=== PATIENT | female | born 1980 | race Caucasian/White ===

== ENCOUNTER 2019-11-16 15:37 | Outpatient (CLI) | payer OTHER, SELFPAY ==
--- NOTE | ~2019-11-16 | US_ITS ---
EXAMINATION: US soft tissue groin RT EXAM DATE: 11/16/2019 16:22 INDICATION: Right groin pain. TECHNIQUE: Multiple grayscale and Doppler images of the right groin, inguinal region were obtained (veronica gray a technologist who performed the scan) and subsequently reviewed. There is no prior study for laura castillo. FINDINGS: No evidence of right inguinal hernia, lymphadenopathy or other abnormality on the exam. Femoral vesse ls are unremarkable. IMPRESSION: 1. Unremarkable ultrasound exam. Reviewed, dictated and finalized at location G.
== END 2019-11-16 15:38 | disposition home or self-care (01) ==
LOC: ANHIMG 15:40
PROVIDERS: PCP Physician Assistant; Visit Provider Surgery
DX: R10.31 Right lower quadrant pain (principal)
CPT/HCPCS: 76882

== ENCOUNTER 2021-03-31 13:54 | Emergency (ER) | payer OTHER, SELFPAY ==
[2021-03-31 14:21] VITALS: BP 137/91; PULSE 104; RESP 18; TEMP 37.2; O2SAT 98
--- NOTE | 2021-03-31 18:00 | ED.GENADULT ---
HPI - General Adult General Chief complaint: Unspecified Stated complaint: throat pain Time Seen by Provider: 03/31/21 15:23 Source: patient Mode of arrival: ambulatory Limitations: no limitations History of Present Illness HPI narrative: Patient 40-year-old female with chief complaint of sore throat for the past 2 days. Patient reports she has issues with recurrent tonsillitis. Patient reports she has been gargling with salt water and taking ibuprofen without relief of her symptoms. Patient also reports some low-grade fevers at home. Patient reports she was well to have her tonsils removed multiple years ago but did not go for with the procedure. Patient denies any other symptoms or concerns. Related Data Home Medications Medication Instructions Recorded Confirmed ibuprofen 800 mg tablet 800 mg PO TID 11/02/19 Allergies Allergy/AdvReac Type Severity Reaction Status Date / Time green pepper Allergy Severe Swelling Verified 11/02/19 11:56 of Lip/Tongue/Throat mushroom Allergy Severe Hives Verified 11/02/19 11:56 onion Allergy Severe Hives Verified 11/02/19 11:56 hydromorphone Allergy Unknown Confusion Unverified 01/18/15 09:12 codeine AdvReac Unknown Nausea Unverified 01/18/15 09:12 Review of Systems Review of Systems: CONSTITUTIONAL: Denies fever, chills, or sweats. EYES: Denies visual changes, redness, or discharge. ENT: Reports sore throat denies rhinorrhea, congestion, or otalgia. CARDIOVASCULAR: Denies chest pain, palpitations, or edema. RESPIRATORY: Denies cough or dyspnea. GASTROINTESTINAL: Denies abdominal pain, nausea, vomiting, or diarrhea. GENITOURINARY: Denies dysuria or hematuria. SKIN: Denies rash or itching. MUSCULOSKELETAL: Denies back pain, joint pain, or myalgia. NEUROLOGIC: Denies headache, numbness, dizziness, or weakness. PSYCHIATRIC: Denies anxiety or depression. [facility] Past Medical History Medical History (Updated 03/31/21 @ 18:05 by Eveline Hudson PA-C) Anxiety Surgical History Surgical History History of ankle surgery Hx laparoscopic cholecystectomy Hx of tubal ligation Family History Family History Mother Diabetes mellitus Hypertension Social History Social History Smoking status: Never smoker Alcohol intake: never Substance use: never Exam Narrative: GENERAL: Well-appearing, well-nourished, and in no acute distress. HEAD: Normocephalic, atraumatic. EYES: PERRLA and EOMI. ENT: Nares clear, no rhinorrhea or epistaxis. Mucous membranes moist. Bilateral tonsils erythematous with some erythema to the uvula as well. No uvular deviation. No exudate noted. Bilateral TMs pearly vargas nonbulging NECK: Supple. Bilateral tonsillar adenopathy. NEURO: No focal deficits. Alert and oriented x3. PSYCH: Normal mood and affect. Course Vital Signs Vital signs: Vital Signs Temperature 99.0 F 03/31/21 14:21 Pulse Rate 104 H 03/31/21 14:21 Respiratory Rate 18 03/31/21 14:21 Blood Pressure 137/91 H 03/31/21 14:21 Pulse Oximetry 98 03/31/21 14:21 Temperature 99.0 F 03/31/21 14:21 Pulse Rate 104 H 03/31/21 14:21 Respiratory Rate 18 03/31/21 14:21 Blood Pressure 137/91 H 03/31/21 14:21 Pulse Oximetry 98 03/31/21 14:21 Medical Decision Making MDM Narrative Medical decision making narrative: Patient has received Decadron injection and has decreased swelling to her throat. Patient speech is clear and appropriate she is able to handle her own secretions well. Patient strep test was negative. Will be sent for culture. Patient will be prescribed p Medrol Dosepak and Augmentin. She will also be given Magic mouthwash to help with pain and swelling. And naproxen. Patient will be referred to ear nose throat specialist for reevaluation. Patient instructed to return to emergency depart
[2021-03-31 18:25] VITALS: BP 138/82; PULSE 86; RESP 19; O2SAT 99
== END 2021-03-31 18:33 | disposition home or self-care (01) ==
PROVIDERS: Emergency Provider Emergency Medicine
DX: J03.91 Acute recurrent tonsillitis, unspecified (principal)
CPT/HCPCS: 87081; 87880; 96372; 99283; J1100

== ENCOUNTER 2023-07-16 21:14 | Emergency (ER) | payer OTHER, SELFPAY ==
[2023-07-16 21:16] VITALS: BP 140/84; PULSE 97; RESP 15; TEMP 36.8; O2SAT 98
[2023-07-16 21:50] LABS: Strep Group A RT-PCR NOT DETECTED (Negative)
[2023-07-16 22:01] LABS: Influenza A QL RT-PCR Negative (Negative); Influenza B QL RT-PCR Negative (Negative); RSV RNA, RT-PCR Negative (Negative); SARS-CoV-2 RNA PCR Negative (Negative)
[2023-07-16 22:02] VITALS: BP 152/89; PULSE 97; RESP 15; O2SAT 100
[2023-07-16 22:29] VITALS: BP 143/93; PULSE 97; RESP 15; TEMP 38.3; O2SAT 99
[2023-07-16] MEDS: KETOROLAC 15 MG/ML VIAL (*BKC) IV PUSH (22:31)
[2023-07-16] MEDS: ACETAMINOPHEN 325 MG TABLET 650 MG PO (22:31)
[2023-07-16] MEDS: ONDANSETRON INJ 4 MG/2 ML VIAL IV PUSH (22:31)
[2023-07-16] MEDS: dexAMETHasone SOD PHOS INJ 10 MG/ML 1 ML VIAL 6 MG IV PUSH (22:31)
--- NOTE | 2023-07-16 22:32 | ED.GENADULT ---
HPI - General Adult General Chief complaint: Unspecified Stated complaint: body aches, chills, throat hurts Time Seen by Provider: 07/16/23 21:35 Source: patient Mode of arrival: ambulatory Limitations: no limitations History of Present Illness HPI narrative: This is a 42-year-old female who presents to the ED with chief complaint of sore throat and chills beginning around 1930 this evening. Patient reports that her daughter was recently sick with sore throat and given amoxicillin. Patient reports that it feels like her tonsils are very swollen. Reports that she has had strep throat multiple times in the past and has had tonsil strain in the past. She saw ENT many years ago but said not to tonsillectomy. Patient states that she has had lot of generalized body aches, worse in the back. Denies shortness of breath, chest pain, abdominal pain, nausea, vomiting. Denies trismus, drooling or submandibular swelling. Related Data Home Medications Medication Instructions Recorded Confirmed ibuprofen 800 mg tablet 800 mg PO TID 11/02/19 Allergies Allergy/AdvReac Type Severity Reaction Status Date / Time man pepper [green pepper] Allergy Severe Swelling Verified 07/16/23 22:18 of Lip/Tongue/Throat mushroom Allergy Severe Hives Verified 07/16/23 22:18 onion Allergy Severe Hives Verified 07/16/23 22:18 hydromorphone Allergy Unknown Confusion Verified 07/16/23 22:18 codeine AdvReac Unknown Nausea Verified 07/16/23 22:18 Review of Systems Review of Systems: All systems as dictated in [facility] Past Medical History Medical History (Updated 07/16/23 @ 23:27 by Roel Mccormick PA-C) Anxiety Surgical History Surgical History History of ankle surgery Hx laparoscopic cholecystectomy Hx of tubal ligation Family History Family History Mother Diabetes mellitus Hypertension Social History Social History Smoking status: Never smoker Alcohol intake: never Substance use: never Living arrangements: with family Exam Narrative: GENERAL: Well-appearing, well-nourished, and in no acute distress. HEAD: Normocephalic, atraumatic. EYES: PERRLA and EOMI. ENT: 3+ tonsillar hypertrophy bilaterally. Uvula midline. Posterior oropharynx erythema present. No exudates. No muffled voice Floor of the mouth intact. No trismus. No drooling. Airway intact Nares clear, no rhinorrhea or epistaxis. Mucous membranes moist. NECK: Supple. No adenopathy or masses. CHEST: No respiratory distress. Clear to auscultation. No wheezes rales or rhonchi HEART: Regular rate and rhythm. No murmur heard. Normal peripheral pulses. ABDOMEN: Soft, nontender, nondistended, normal active bowel sounds. MSK: Normal range of motion. No edema. SKIN: Warm, dry, no rash. NEURO: Alert and oriented x3. No focal deficits. PSYCH: Normal mood and affect. Course Vital Signs Vital signs: Vital Signs Temperature 98.3 F 07/16/23 21:16 Pulse Rate 97 07/16/23 21:16 Respiratory Rate 15 07/16/23 21:16 Blood Pressure 140/84 07/16/23 21:16 Pulse Oximetry 98 07/16/23 21:16 Oxygen Delivery Room Air 07/16/23 21:16 Temperature 101 F H 07/16/23 22:29 Pulse Rate 97 07/16/23 22:29 Respiratory Rate 15 07/16/23 22:29 Blood Pressure 143/93 H 07/16/23 22:29 Pulse Oximetry 99 07/16/23 22:29 Oxygen Delivery Room Air 07/16/23 22:02 Medical Decision Making [facility] Narrative Medical decision making narrative: This is a 42-year-old female who presents to the ED with chief complaint of sore throat and chills. Vitals are initially but after RA evaluate the patient she does have noted temperature of 101? F. Otherwise no tachycardia or signs of sepsis. Exam remarkable for erythematous, small tonsils. No evidence of HAIRPIECE STYLIST on exam. Strep swab, swabs neg
[2023-07-16 23:15] VITALS: RESP 16
[2023-07-16] MEDS: AMPICILLIN SULB 1.5 GM/NS 50ML 1.5 GM/50 ML VIAL IVPB (23:38)
--- NOTE | 2023-07-26 02:04 | PC.NURSE ---
LATE ENTRY This note is being entered to document information to the patient's record. The following information was omitted on 07/17/23, by Alicia Song. The IV Ampicillin was infused on 07/17/23 0020.
== END 2023-07-17 00:06 | disposition home or self-care (01) ==
PROVIDERS: Emergency Medicine; Emergency Provider Physician Assistant
DX: J03.90 Acute tonsillitis, unspecified (principal); Z20.822 Contact with and (suspected) exposure to COVID-19; Z90.49 Acquired absence of other specified parts of digestive tract
CPT/HCPCS: 87637; 87651; 96365; 96375; 99284; A9270; J0295; J1100; J1885; J2405

== ENCOUNTER 2024-01-18 08:43 | Emergency (ER) | payer OTHER, SELFPAY ==
--- NOTE | ~2024-01-18 | CT_ITS ---
CT soft tissue neck w con Ordering provider: Rabia Liriano APRN History: 43 years Female with . L posterior neck abscess . Comparison: None. Technique: CT soft tissues neck was performed with contrast. . Automated exposure control and iterat jose reconstruction technique were employed. The dose-length product was 519.69 mGy-cm. 75 mL Omnipaqu e 350 was given IV. Findings: LOWER HEAD: The visualized brain parenchyma, optic globes/orbits and mastoids are normal. The visua lized paranasal sinuses are well aerated. SALIVARY GLANDS: Normal. THYROID: Normal. SUPRAHYOID DEEP SPACES: Enlarged left parapharyngeal lymph nodes is seen measuring 1.3 x 1.3 cm. CAROTID ARTERIES: Normal. JUGULAR VEINS: Normal. TONSILS: Slightly enlarged. ORAL CAVITY: normal as visualized. PHARYNX, LARYNX AND TRACHEA: Patent and normal. No prevertebral soft tissue swelling. SUPERFICIAL SOFT TISSUES: Soft tissue density is seen in the left posterior subcutaneous tissue which measures 1.3 x 1 cm and may represent a small abscess. Enlarged lymph nodes are seen in the left pos terior triangle with the largest node measures 1.3 cm. Small lymph nodes are seen in both posterior triangles. THORACIC INLET/VISUALIZED UPPER CHEST: Normal. SKELETAL: Normal. IMPRESSION: 1. Soft tissue density seen in the left posterior scalp suggestive of a small abscess. Fat strandin g is seen in the same area. 2. Lymph nodes enlargement seen in the left posterior triangle and left parapharyngeal spaces. Reviewed, dictated and finalized at location A. IMPRESSION: 1. Soft tissue density seen in the left posterior scalp suggestive of a small abscess. Fat stranding is seen in the same area. 2. Lymph nodes enlargement seen in the left posterior triangle and left paraph aryngeal spaces.
[2024-01-18 08:52] VITALS: BP 109/87; PULSE 81; RESP 14; O2SAT 100
--- NOTE | 2024-01-18 09:23 | ED.SKABFB ---
HPI - Skin/Abscess/Foreign Bdy General Chief complaint: Skin/Abscess/Foreign Body Stated complaint: swelling to left neck Time Seen by Provider: 01/18/24 09:01 History of Present Illness HPI narrative: Patient is a 43-year-old female who presents to the ER with of the left posterior neck abscess started 6 days ago. She went to urgent care 3 days ago where they started her on Bactrim. Patient reports the wound has not improved. She reports swelling has started traveling towards her L ear, down her left neck toward her shoulder. Patient endorses increased pain in the last 2 days. She reports it was draining 3 days ago but has since subsided and now has a black scab at the hogshead wrecker. Patient denies fevers, other signs /symptoms of illness, shortness of breath, or chest pain. She denies any medical history pertinent to this visit. Related Data Home Medications Medication Instructions Recorded Confirmed ibuprofen 800 mg tablet 800 mg PO TID 11/02/19 Allergies Allergy/AdvReac Type Severity Reaction Status Date / Time man pepper [green pepper] Allergy Severe Swelling Verified 01/18/24 09:12 of Lip/Tongue/Throat mushroom Allergy Severe Hives Verified 01/18/24 09:12 onion Allergy Severe Hives Verified 01/18/24 09:12 hydromorphone Allergy Unknown Confusion Verified 01/18/24 09:12 codeine AdvReac Unknown Nausea Verified 01/18/24 09:12 Review of Systems Review of Systems: All systems reviewed & are unremarkable except as noted in HPI and below PMFSH Past Medical History Medical History (Updated 01/18/24 @ 13:32 by Rabia Liriano APRN) Anxiety Neck abscess Surgical History Surgical History History of ankle surgery Hx laparoscopic cholecystectomy Hx of tubal ligation Family History Family History Mother Diabetes mellitus Hypertension Social History Social History Smoking status: Never smoker Alcohol intake: never Substance use: never Living arrangements: with family Exam Narrative: GENERAL: Well appearing, well-nourished, non-toxic, in no acute distress. HEAD: Normocephalic, atraumatic. NECK: Supple. 1 in by 1 in circular palpable lesion on posterior left neck, 1/4 inch black eschar at the tip of the lesion with no noticeable drainage. Redness and swelling travel approximately 1 additional inch down her neck towards her back. Site does not feel warm to the touch. Increased tenderness with palpation. Three palpable cervical lymph nodes tracking along the left side of patient's neck. RESPIRATORY: Airway patent, respirations nonlabored. Clear to auscultation bilaterally, no rales, rhonchi, wheezing. CARDIOVASCULAR: Regular rate and rhythm without murmurs, rubs, or gallops. Peripheral pulses 2+ and equal bilaterally. ABDOMINAL: Soft, nontender, nondistended, no hepatosplenomegaly. Normoactive BS. MUSCULOSKELETAL: Moves all extremities. Strength/ROM intact without gross deformities. SKIN: Warm, dry, normal color except for wound on L neck. NEURO: A&O X3. Speech clear. Cranial nerves II-XII grossly intact. Steady gait. No ataxic movements. PSYCHIATRIC: Appropriate mood and affect. Normal interaction. Course Vital Signs Vital signs: Vital Signs Pulse Rate 81 01/18/24 08:52 Respiratory Rate 14 01/18/24 08:52 Blood Pressure 109/87 01/18/24 08:52 Pulse Oximetry 100 01/18/24 08:52 Oxygen Delivery Room Air 01/18/24 08:52 Pulse Rate 79 01/18/24 11:30 Respiratory Rate 13 01/18/24 11:30 Blood Pressure 110/71 01/18/24 11:30 Pulse Oximetry 100 01/18/24 11:30 Oxygen Delivery Room Air 01/18/24 08:52 Procedures Abscess I/D neck: Date of Incision: 01/18/24 Time of Incision: 12:50 Side (if applicable): left Sedation/analgesia: other (mor
[2024-01-18] MEDS: SODIUM CHLORIDE 0.9% IV 1,000 ML 999 ML IV CONT (09:54)
[2024-01-18 09:55] LABS: Basophils Percent Auto 0.5 % (0.2-1.2); Eosinophils Absolute Auto 0.1 K/mm3 (0-0.3); Eosinophils Percent Auto 1.6 % (0-4.4); Hematocrit 40.1 % (37.0-47.0); Hemoglobin 13.4 g/dL (12.0-15.0); Immature Granulocyte Absolute 0.03 K/mm3 (0.00-0.031); Immature Granulocyte Percent A 0.4 % (0-0.5); Lymphocytes Absolute Auto 1.27 K/mm3 (0.9-3.2); Lymphocytes Percent Auto 15.4 % (18.3-44.2); Mean Corpuscular HGB Conc 33.4 g/dl (32-36); Mean Corpuscular Volume 89.7 fl (80-100); Mean Platelet Volume 11.6 fl (7.4-10.4); Monocytes Absolute Auto 1.2 K/mm3 (0.1-0.6); Monocytes Percent Auto 14.4 % (2.6-8.5); Neutrophils Absolute Auto 5.6 K/mm3 (1.3-6.7); Neutrophils Percent Auto 67.7 % (45.5-73.1); Platelet Count Result 256 k/mm3 (150-375); Red Blood Count 4.47 M/mm3 (4.2-5.4); White Blood Count 8.3 K/mm3 (4.5-10.0)
[2024-01-18] MEDS: MORPHINE SULFATE (*CRX) 2 MG/ML INJ IV PUSH (09:55)
[2024-01-18] MEDS: ONDANSETRON INJ 4 MG/2 ML VIAL IV PUSH (09:55)
[2024-01-18] MEDS: KETOROLAC 15 MG/ML VIAL (*BKC) IV PUSH (09:55)
[2024-01-18 10:04] LABS: Lactic Acid Reflex 2.1 mmol/L (0.7-2.0)
[2024-01-18 10:06] LABS: Prothrombin Time 13.4 Seconds (11.1-14.7)
[2024-01-18 10:07] LABS: Partial Thromboplastin Time 28.3 Seconds (22.3-36.8)
[2024-01-18 10:08] LABS: Alanine Aminotransferase 13 U/L (6-35); Albumin Level 4.1 g/dL (3.5-5.1); Alkaline Phosphatase 68 U/L (38-126); Anion Gap 7 mmol/L (4-12); Aspartate Amino Transferase 21 U/L (14-36); Bilirubin,Total 0.3 mg/dL (0.2-1.3); Blood Urea Nitrogen 11 mg/dL (7-17); CRP 2.4 mg/dL (<1.0); Calcium 9.1 mg/dL (8.4-10.2); Carbon Dioxide 22 mmol/L (22-30); Chloride 107 mmol/L (98-107); Estimated CRCL calculation 87 ml/min; Estimated Glomerular Filt Rate > 60; Glucose 82 mg/dL (65-110); Potassium 3.9 mmol/L (3.4-5.0); Sodium 136 mmol/L (137-145)
[2024-01-18] MEDS: VANCOMYCIN 1,500 MG/NS 500 ML 1,500 MG/500 ML BAG 250 MG IVPB (10:39)
[2024-01-18 11:01] VITALS: BP 126/79; PULSE 64; RESP 16; O2SAT 100
[2024-01-18 11:30] VITALS: BP 110/71; PULSE 79; RESP 13; O2SAT 100
[2024-01-18] MEDS: MORPHINE SULFATE (*CRX) 4 MG/ML INJ IV PUSH (12:44)
[2024-01-18 12:50] LABS: Reflex Lactic Acid Yes or No Add Lactic
[2024-01-18 13:39] LABS: Lactic Acid 0.9 mmol/L (0.7-2.0)
[2024-01-18 13:50] VITALS: BP 110/64; PULSE 67; RESP 16; O2SAT 99
== END 2024-01-18 13:52 | disposition home or self-care (01) ==
PROVIDERS: Emergency Provider Registered Nurse
DX: L02.11 Cutaneous abscess of neck (principal); L03.221 Cellulitis of neck; F41.9 Anxiety disorder, unspecified
CPT/HCPCS: 10060; 36415; 70491; 80053; 83605; 85025; 85610; 85730; 86140; 87040; 87070; 87181; 87205; 96365; 96366; 96375; 96376; 99284; J1885; J2270; J2405; J3370; J7030; Q9967

== ENCOUNTER 2024-01-22 15:53 | Emergency (ER) | payer OTHER, SELFPAY ==
[2024-01-22 15:55] VITALS: BP 123/74; PULSE 88; RESP 18; TEMP 36.8; O2SAT 97
--- NOTE | 2024-01-22 17:52 | ED.RECABL ---
HPI - Recheck/Abnormal Lab/Rx General Chief Complaint: Recheck/Abnormal Lab/Rx Stated Complaint: recheck for labs Time Seen by Provider: 01/22/24 17:31 Source: patient Mode of arrival: ambulatory Limitations: no limitations History of Present Illness HPI narrative: This is a 43 year old female that presents to the ER for positive cultures. She believes she was told the antibiotic she was on would not work based on her cultures and she should go to the ER. Related Data Home Medications Medication Instructions Recorded Confirmed ibuprofen 800 mg tablet 800 mg PO TID 11/02/19 Allergies Allergy/AdvReac Type Severity Reaction Status Date / Time man pepper [green pepper] Allergy Severe Swelling Verified 01/22/24 17:17 of Lip/Tongue/Throat mushroom Allergy Severe Hives Verified 01/22/24 17:17 onion Allergy Severe Hives Verified 01/22/24 17:17 hydromorphone Allergy Unknown Confusion Verified 01/22/24 17:17 codeine AdvReac Unknown Nausea Verified 01/22/24 17:17 Review of Systems Review of Systems: CONSTITUTIONAL: Denies fever SKIN: Reports wound All systems reviewed & are unremarkable except as noted in HPI and below PMFSH Past Medical History Medical History (Updated 01/22/24 @ 17:53 by Araseli Baltazar PA-C) Anxiety Neck abscess Surgical History Surgical History History of ankle surgery Hx laparoscopic cholecystectomy Hx of tubal ligation Family History Family History Mother Diabetes mellitus Hypertension Social History Social History Smoking status: Never smoker Alcohol intake: never Substance use: never Living arrangements: with family Exam Narrative: GENERAL: Well-appearing, well-nourished, and in no acute distress. HEAD: Normocephalic, atraumatic. EYES: EOMI. NECK: Supple. Left posterior neck with small area of erythema and edema, no central fluctuance EXTREMITIES: Normal range of motion. No edema. SKIN: Warm, dry, no rash. NEURO: No focal deficits. Alert and oriented x3. PSYCH: Normal mood and affect Course Vital Signs Vital signs: Vital Signs Temperature 98.3 F 01/22/24 15:55 Pulse Rate 88 01/22/24 15:55 Respiratory Rate 18 01/22/24 15:55 Blood Pressure 123/74 01/22/24 15:55 Pulse Oximetry 97 01/22/24 15:55 Oxygen Delivery Room Air 01/22/24 15:55 Temperature 98.3 F 01/22/24 15:55 Pulse Rate 88 01/22/24 15:55 Respiratory Rate 18 01/22/24 15:55 Blood Pressure 123/74 01/22/24 15:55 Pulse Oximetry 97 01/22/24 15:55 Oxygen Delivery Room Air 01/22/24 15:55 MDM - Recheck/Abnormal Lab/Rx MDM Narrative Medical decision making narrative: Patient presents to the emergency department and she was called by PCP and told her cultures were positive. She is afebrile and nontoxic appearing. Wound appears to be well healing. Her wound culture was positive for MRSA, sensitive to clindamycin which she is currently taking. Her blood cultures were negative. I did re-dress her wound and educated her on further wound care. She was given warnings to return to the ER Differential Diagnosis Differential diagnosis: Likely encounter for wound recheck Critical Care Time Critical Care Time Critical Care Time: No Discharge Plan Discharge Clinical Impression: Visit for wound check Patient Disposition: Home, Self-Care Condition: Stable Instructions: Antibiotic Form, Abscess (ED) Additional Instructions: Return if symptoms worsen or concerns: any increase in redness, swelling, pain or fever over 101 Take antibiotics as directed. Clean wound with mild soapy water. Apply antibiotic ointment twice daily. Follow up with primary care doctor Prescriptions: New mupirocin 2 % ointment 1 applic topical BID 7 Days Qty: 15 0RF No Action
== END 2024-01-22 18:05 | disposition home or self-care (01) ==
PROVIDERS: Emergency Provider Physician Assistant
DX: L02.11 Cutaneous abscess of neck (principal); B95.62 Methicillin resistant Staphylococcus aureus infection as the cause of diseases classified elsewhere; Z90.49 Acquired absence of other specified parts of digestive tract
CPT/HCPCS: 99283